=== PATIENT | male | born 1980 | race Caucasian/White ===

== ENCOUNTER 2022-08-04 12:19 | Emergency (ER) | payer OTHER, SELFPAY ==
--- NOTE | ~2022-08-04 | XR_ITS ---
EXAMINATION: XR chest 2V DATE: 08/04/2022 13:10 INDICATION: Wheezing and shortness of breath TECHNIQUE: PA and lateral views of the chest are obtained. COMPARISON: None available FINDINGS: The lungs are free of acute opacities. No pleural effusion or pneumothorax. The cardiomedia stinal silhouette is normal. The visualized bones and soft tissues are unremarkable. IMPRESSION: 1. No acute cardiopulmonary abnormality. Reviewed, dictated and finalized at location A.
--- NOTE | 2022-08-04 12:36 | ED.GENADULT ---
HPI - General Adult General Chief complaint: Upper Respiratory Infection Stated complaint: . Time Seen by Provider: 08/04/22 12:36 Source: patient Mode of arrival: ambulatory Limitations: no limitations History of Present Illness HPI narrative: 42-year-old male patient presents to the [facility] with complaints of a cough and flu-like symptoms of been on and off for the past 5 days but states hit me worse this morning . Patient states he has had sore throat, congestion, body aches, chills some nausea and diarrhea that has since resolved and a lingering cough and he feels like he might be wheezing. Patient states he has been taking [id number] medications for symptoms this week. Related Data Allergies Allergy/AdvReac Type Severity Reaction Status Date / Time Penicillins Allergy Mild Unknown Verified 08/04/22 12:38 Review of Systems Review of Systems: CONSTITUTIONAL: Denies fever, Positive body aches and chills, denies sweats. EYES: Denies visual changes, redness, or discharge. ENT: positive rhinorrhea, congestion, sore throat, denies otalgia. CARDIOVASCULAR: Denies chest pain, palpitations, or edema. RESPIRATORY: positive cough denies dyspnea. GASTROINTESTINAL: Denies abdominal pain, nausea, vomiting, or diarrhea. GENITOURINARY: Denies dysuria or hematuria. SKIN: Denies rash or itching. MUSCULOSKELETAL: Denies back pain, joint pain, or myalgia. NEUROLOGIC: Denies headache, numbness, or weakness. PSYCHIATRIC: Denies anxiety or depression. PMFSH Comments At the time of my signature I agree with nursing past medical history, surgical, social, and family history. There is no relevant family history pertinent to the presenting complaint. Exam Narrative: GENERAL: Well-appearing, well-nourished, and in no acute distress. HEAD: Normocephalic, atraumatic. EYES: PERRLA and EOMI. ENT: Nares with erythema edema noted bilateral, no rhinorrhea or epistaxis. Mucous membranes moist. posterior pharynx with slight erythema, no tonsillar enlargement, no exudates or lesions present. Bilateral TMs are clear but do appear to have a little bit of fluid behind the TM. NECK: Supple. No lymphadenopathy CHEST: Very slight expiratory wheezing noted to the lower right lobe on auscultation. No respiratory distress. HEART: Regular rate and rhythm. No murmur heard. Normal peripheral pulses. ABDOMEN: Soft, nontender, nondistended, normal active bowel sounds. EXTREMITIES: Normal range of motion. No edema. SKIN: Warm, dry, no rash. NEURO: No focal deficits. Alert and oriented x3. Course Course Level of Care: Express Care Visit Reevaluation(s) Reevaluation #1: Re-evaluated patient notified him x-ray his labs were all negative today. Most likely has a virus possibly some developing bronchitis. Did discharge patient home with oral steroids and albuterol and encouraged him to continue [id number] medications as needed. Patient verbalized understanding denies any other questions or concerns at this time. Date: 08/04/22 Time: 13:27 Vital Signs Vital signs: Vital Signs Temperature 37.1 C 08/04/22 12:45 Pulse Rate 107 H 08/04/22 12:45 Respiratory Rate 18 08/04/22 12:45 Blood Pressure 146/87 H 08/04/22 12:45 Pulse Oximetry 96 08/04/22 12:45 Oxygen Delivery Room Air 08/04/22 12:45 Temperature 37.1 C 08/04/22 12:45 Pulse Rate 107 H 08/04/22 12:45 Respiratory Rate 18 08/04/22 12:45 Blood Pressure 146/87 H 08/04/22 12:45 Pulse Oximetry 96 08/04/22 12:45 Oxygen Delivery Room Air 08/04/22 12:45 Vital signs reviewed. Medical Decision Making MDM Narrative Medical decision making narrative: plan of care for patient is to swab him today for influenza, COVID and strep. We will also do a chest x-ray to evaluate for possible pneumonia. I will reassess him once this has resulted. Differential Diagnosis Differential Diagnosis: Differential diagnosis: Allergic rhinitis, chronic sinus
[2022-08-04 12:45] VITALS: BP 146/87; PULSE 107; RESP 18; TEMP 37.1; O2SAT 96
== END 2022-08-04 13:33 | disposition home or self-care (01) ==
PROVIDERS: Emergency Provider Nurse Practitioner Family
DX: J40 Bronchitis, not specified as acute or chronic (principal); Z20.822 Contact with and (suspected) exposure to COVID-19
CPT/HCPCS: 71046; 87081; 87426; 87804; 87880; 99213; C9803; G0463

== ENCOUNTER 2024-12-23 10:44 | Outpatient (CLI) | payer OTHER, SELFPAY ==
--- NOTE | ~2024-12-23 | XR_ITS ---
XR cervical spine 4-5V Indication: Cervicalgia and chronic back pain Comparison: None Findings: The vertebral heights are intact. No fracture or subluxation. The disc heights are intact. Soft tissues unremarkable Impression: No acute abnormality. Reviewed, dictated and finalized at location A. Impression: No acute abnormality.
--- NOTE | ~2024-12-23 | XR_ITS ---
XR lumbar spine min 4V Indication: Cervicalgia and chronic back pain Comparison: None Findings: The vertebral heights are intact. No fracture or subluxation. The disc heights are intact. Soft tissues unremarkable Impression: No acute abnormality. Reviewed, dictated and finalized at location A. Impression: No acute abnormality.
--- NOTE | ~2024-12-23 | XR_ITS ---
XR thoracic spine 3V Indication: Cervicalgia and chronic back pain Comparison: None Findings: Minimal levoconvex scoliosis, no fracture or subluxation The disc heights are intact. Soft tissues unremarkable Impression: No acute abnormality. Reviewed, dictated and finalized at location A. Impression: No acute abnormality.
== END 2024-12-23 10:45 | disposition home or self-care (01) ==
PROVIDERS: PCP Family Medicine; Visit Provider Family Medicine
DX: M54.2 Cervicalgia (principal); G89.29 Other chronic pain; M54.9 Dorsalgia, unspecified
CPT/HCPCS: 72050; 72072; 72110